=== PATIENT | female | born 1960 | race Caucasian/White ===

== ENCOUNTER → 2017-11-18 | Outpatient (CLI) | payer OTHER ==
[~2017-11-18] MED LIST: IOHEXOL 180 MG/ML 10 ML VIAL.; LIDOCAINE 1% PF 2 ML VIAL.; methylPREDNISolone ACETATE 40 MG/ML VIAL.; methylPREDNISolone ACETATE 80 MG/ML VIAL.
== END ==
LOC: PNCL 07:57
DX: M51.16 Intervertebral disc disorders with radiculopathy, lumbar region (principal); M96.1 Postlaminectomy syndrome, not elsewhere classified; I10 Essential (primary) hypertension; M19.90 Unspecified osteoarthritis, unspecified site; F32.9 Major depressive disorder, single episode, unspecified; F17.200 Nicotine dependence, unspecified, uncomplicated; Z90.49 Acquired absence of other specified parts of digestive tract; Z98.51 Tubal ligation status; Z98.890 Other specified postprocedural states; Z96.653 Presence of artificial knee joint, bilateral
CPT/HCPCS: 62323; J1030; J1040; Q9965

== ENCOUNTER → 2017-12-02 | Outpatient (CLI) | payer OTHER ==
[2017-12-02] MEDS: GADOBUTROL 10 MMOL/10 ML VIAL IV (10:48)
== END | disposition home or self-care (01) ==
LOC: KCIC MRI 09:25
DX: M51.36 Other intervertebral disc degeneration, lumbar region (principal); M48.07 Spinal stenosis, lumbosacral region
CPT/HCPCS: 72158; A9585

== ENCOUNTER → 2017-12-02 | Outpatient (CLI) | payer OTHER | END | disposition home or self-care (01) | LOC: PNCL 08:01 | DX: M51.16 Intervertebral disc disorders with radiculopathy, lumbar region (principal); M96.1 Postlaminectomy syndrome, not elsewhere classified; Z88.5 Allergy status to narcotic agent; Z88.8 Allergy status to other drugs, medicaments and biological substances; I10 Essential (primary) hypertension; Z90.49 Acquired absence of other specified parts of digestive tract; Z98.51 Tubal ligation status; M19.90 Unspecified osteoarthritis, unspecified site; Z96.653 Presence of artificial knee joint, bilateral; F32.9 Major depressive disorder, single episode, unspecified; F17.200 Nicotine dependence, unspecified, uncomplicated | CPT/HCPCS: 62323; J1030; J1040; Q9965 ==

== ENCOUNTER → 2017-12-17 | Outpatient (CLI) | payer OTHER | END | disposition home or self-care (01) | LOC: PNCL 08:04 | DX: M51.16 Intervertebral disc disorders with radiculopathy, lumbar region (principal); I10 Essential (primary) hypertension; Z87.891 Personal history of nicotine dependence | CPT/HCPCS: 99212 ==

== ENCOUNTER 2018-03-14 14:41 | Emergency (ER) | payer OTHER ==
[~2018-03-14] VITALS: Ht 182.9 cm; Wt 113.4 kg
[~2018-03-14 14:41] MED LIST changes: +AMLO1CAP5 PO; +CYAN500T17 PO; +CYCL10TA2 PO; +DOCU-109 PO; +ESCITALOPRAM OX10 MG PO; +ESTR1TAB5 PO; +GABA600T91 PO; +HYDR-2762 PO; -IOHEXOL 180 MG/ML 10 ML VIAL.; -LIDOCAINE 1% PF 2 ML VIAL.; +NAPR250T6 PO; +NAPR500T8 PO; +OXYC-328 PO; +TRIA1TAB PO; -methylPREDNISolone ACETATE 40 MG/ML VIAL.; -methylPREDNISolone ACETATE 80 MG/ML VIAL.
--- NOTE | 2018-03-14 15:04 | RAD ---
EXAM: PORTABLE CHEST 1V AP View of the chest DATE: 03/14/2018 2:55 PM INDICATION: Syncope COMPARISON: No Prior FINDINGS: The heart is not enlarged. Mediastinal and hilar contours are normal. No focal parenchymal airspace opacity. No pleural effusion or pneumothorax. IMPRESSION: 1. No radiographic evidence for acute cardiopulmonary process. Electronically signed by: Tre Hoffman MD (03/14/2018 3:01 PM) [facility]
[2018-03-14 15:15] LABS: BASO % 1 % (0-3); EOS # 0.1 x10^3/uL (0.0-0.7); EOS % 1 % (0-3); HEMATOCRIT 37.8 % (36.0-47.0); HEMOGLOBIN 13.5 g/dL (12.0-15.5); LYMPH # 1.6 x10^3/uL (1.0-4.8); LYMPH % 20 % (24-48); MEAN CORPUSCULAR HEMOGLOBIN 32 pg (25-35); MEAN CORPUSCULAR HGB CONC 36 g/dL (31-37); MEAN CORPUSCULAR VOLUME 90 fL (79-100); MONO # 0.7 x10^3/uL (0.0-1.1); MONO % 9 % (0-9); NEUT # 5.5 x10^3uL (1.8-7.7); NEUT % 70 % (31-73); PLATELET COUNT 286 x10^3/uL (140-400); RED BLOOD COUNT 4.21 x10^6/uL (3.50-5.40); RED CELL DISTRIBUTION WIDTH 14.1 % (11.5-14.5); WHITE BLOOD COUNT 7.9 x10^3/uL (4.0-11.0)
[2018-03-14 15:25] LABS: BILIRUBIN,URINE NEGATIVE (NEG); CLARITY,URINE CLEAR; COLOR,URINE YELLOW; NITRITE,URINE NEGATIVE (NEG); PROTEIN,URINE NEGATIVE (NEG-TRACE); UROBILINOGEN,URINE 0.2 mg/dL (0.2 mg/dL)
[2018-03-14 15:31] LABS: CALCIUM 9.6 mg/dL (8.5-10.1); GFR 56.9; POTASSIUM 3.6 mmol/L (3.5-5.1)
[2018-03-14 15:35] LABS: BACTERIA,URINE 0 /HPF (0-FEW); HYALINE CASTS, URINE FEW /HPF; RBC,URINE OCC /HPF (0-2); SQUAMOUS EPITHELIAL CELL,UR OCC /LPF; WBC,URINE RARE /HPF (0-4)
[2018-03-14 15:37] LABS: ALBUMIN/GLOBULIN RATIO 1.3 (1.0-1.7); TOTAL BILIRUBIN 0.3 mg/dL (0.2-1.0); TOTAL PROTEIN 7.2 g/dL (6.4-8.2)
--- NOTE | 2018-03-14 15:47 | PHYS DOC ---
Past Medical History Past Medical History: Hypertension Additional Past Medical Histor: CHRONIC BACK PAIN Past Surgical History: Other Additional Past Surgical Histo: NECK AND BACK Alcohol Use: None Drug Use: None Adult General Chief Complaint Chief Complaint: SYNCOPE HPI HPI Patient is a 58 year old F who presents after episode of acute back pain. Patient reports she has chronic back pain. She states she had an acute, sudden onset of lower back pain that caused her to be nauseated. She then had a syncopal episode. She is back to baseline upon arrival and denies any pain or nausea. She did take a lortab 5 prior to this episode. Review of Systems Review of Systems Constitutional: Denies fever or chills [] Respiratory: Denies cough or shortness of breath [] Cardiovascular: No chest pain or palpitations GI: Denies abdominal pain. Reports nausea without vomiting. Musculoskeletal: Low back pain Integument: Denies rash or skin lesions [] Neurologic: Denies headache, focal weakness or sensory changes [] All other systems were reviewed and found to be within normal limits, except as documented in this note. Allergies Allergies Allergies Coded Allergies Type Severity Reaction Last Updated Verified diazepam Allergy Severe "PASSED OUT" WAS "FLOPPING ALL OVER THE BED" 04/10/15 Yes nickel Allergy Intermediate Rash, REDNESS, INFLAMED 04/10/15 Yes morphine Adverse Reaction Severe Nausea and Vomiting, RAPID HEARTBEAT, DIZZINESS 04/10/15 Yes oxycodone Adverse Reaction Severe AGITATION 04/10/15 Yes Physical Exam Physical Exam Constitutional: Well developed, well nourished, no acute distress, non-toxic appearance. [] HENT: Normocephalic, atraumatic Eyes: PERRLA, EOMI, conjunctiva normal, no discharge. [] Neck: Normal range of motion, no tenderness, supple, no stridor. [] Cardiovascular:Heart rate regular rhythm, no murmur [] Lungs & Thorax: Bilateral breath sounds clear to auscultation [] Abdomen: Bowel sounds normal, soft, no tenderness Skin: Warm, dry, no erythema, no rash. [] Back: No tenderness, no CVA tenderness. [] Extremities: No tenderness, ROM intact, no edema. [] Neurologic: Alert and oriented X 3, normal motor function, normal sensory function, no focal deficits noted. [] Psychologic: Affect normal, judgement normal, mood normal. [] Current Patient Data Vital Signs Vital Signs Date Time Temp Pulse Resp B/P (MAP) Pulse Ox O2 Delivery O2 Flow Rate FiO2 03/14/18 14:41 98.2 87 14 131/84 (100) 99 Room Air 98.2 Lab Values Laboratory Tests Test 03/14/18 15:04 03/14/18 15:07 White Blood Count 7.9 x10^3/uL (4.0-11.0) Red Blood Count 4.21 x10^6/uL (3.50-5.40) Hemoglobin 13.5 g/dL (12.0-15.5) Hematocrit 37.8 % (36.0-47.0) Mean Corpuscular Volume 90 fL (79-100) Mean Corpuscular Hemoglobin 32 pg (25-35) Mean Corpuscular Hemoglobin Concent 36 g/dL (31-37) Red Cell Distribution Width 14.1 % (11.5-14.5) Platelet Count 286 x10^3/uL (140-400) Neutrophils (%) (Auto) 70 % (31-73) Lymphocytes (%) (Auto) 20 % (24-48) L Monocytes (%) (Auto) 9 % (0-9) Eosinophils (%) (Auto) 1 % (0-3) Basophils (%) (Auto) 1 % (0-3) Neutrophils # (Auto) 5.5 x10^3uL (1.8-7.7) Lymphocytes # (Auto) 1.6 x10^3/uL (1.0-4.8) Monocytes # (Auto) 0.7 x10^3/uL (0.0-1.1) Eosinophils # (Auto) 0.1 x10^3/uL (0.0-0.7) Basophils # (Auto) 0.0 x10^3/uL (0.0-0.2) Sodium Level 141 mmol/L (136-145) Potassium Level 3.6 mmol/L (3.5-5.1) Chloride Level 103 mmol/L (98-107) Carbon Dioxide Level 25 mmol/L (21-32) Anion Gap 13 (6-14) Blood Urea Nitrogen 20 mg/dL (7-20) Creatinine 1.0 mg/dL (0.6-1.0) Estimated GFR (Cockcroft-Gault) 56.9 BUN/Creatinine Ratio 20 (6-20) Glucose Level 112 mg/dL (70-99) H Calcium Level 9.6 mg/dL (8.5-10.1) Total Bilirubin 0.3 mg/dL (0.2-1.0) Aspartate Amino Transferase (AST) 18 U/L (15-37) Alanine Aminotransferase (ALT) 28 U/L (14-59) Alkaline Phosphatase 99 U/L (46-116) Total Protein 7.2 g/dL (6.4-8.2) Albumin 4.0 g/dL (3.4-5.0) Albumin/Globulin Ratio 1.3 (1.0-1.7) Urine Collection Type U cath Urine Color Yellow Urine Clarity Clear Urine pH 7.0 Urine Specific [place] 1.015 Urine Protein Negative mg/dL (NEG-TRACE) Urine Glucose (UA) Negative mg/dL (NEG) Urine Ketones (Stick) Negative mg/dL (NEG) Urine Blood Negative (NEG) Urine Nitrite Negative (NEG) Urine Bilirubin Negative (NEG) Urine Urobilinogen Dipstick 0.2 mg/dL (0.2 mg/dL) Urine Leukocyte Esterase Negative (NEG) Urine RBC Occ /HPF (0-2) Urine WBC Rare /HPF (0-4) Urine Squamous Epithelial Cells Occ /LPF Urine Bacteria 0 /HPF (0-FEW) Urine Hyaline Casts Few /HPF Urine Mucus Mod /LPF Laboratory Tests 03/14/18 15:04 Laboratory Tests 03/14/18 15:04 EKG EKG NSR, rate 81, Left axis[] Radiology/Procedures Radiology/Procedures PATIENT: TANJA GUTIERREZ LACCOUNT: [id number]#: [id number] : 1960 LOCATION: ER AGE: 58 SEX: F EXAM STATUS: PRE ER ORD. PHYSICIAN: ZANA MOISE APRN REASON: syncope PROCEDURE: PORTABLE CHEST 1V EXAM: PORTABLE CHEST 1V AP View of the chest DATE: 03/14/2018 2:55 PM INDICATION: Syncope COMPARISON: No Prior FINDINGS: The heart is not enlarged. Mediastinal and hilar contours are normal. No focal parenchymal airspace opacity. No pleural effusion or pneumothorax. IMPRESSION: 1. No radiographic evidence for acute cardiopulmonary process. Electronically signed by: Tre Santana MD (03/14/2018 3:01 PM) [facility] DICTATED and SIGNED BY: TRE SANTANA MD DATE: 03/14/18 1500 [] Course & Med Decision Making Course & Med Decision Making Pertinent Labs and Imaging studies reviewed. (See chart for details) I suspect patient had vasovagal syncope r/t sudden pain and nausea. However, offered admission for further evaluation. Patient declines at this time. She is wondering if it is from not eating prior to taking her lortab, also a reasonable explanation. Plan: home to rest, f/u with PCP, return precautions reviewed Dragon Disclaimer Dragon Disclaimer This electronic medical record was generated, in whole or in part, using a voice recognition dictation system. Departure Departure Impression: Primary Impression: Syncope Disposition: HOME, SELF-CARE Condition: IMPROVED Referrals: MARISSA AGUILERA (PCP) Patient Instructions: Syncope Problem Qualifiers Primary Impression: Syncope Syncope type: unspecified Qualified Codes: R55 - Syncope and collapse ZANA MOISE [employer] MARKETING ASSISTANT Mar 14, 2018 15:47
[2018-03-14 16:14] VITALS: BP 127/86
--- NOTE | 2018-03-15 21:13 | EKG ---
[facility] [address] [place] [address] Test Date: 2018-03-14 Test Time: 14:49:01 Pat Name: TANJA GUTIERREZ Department: Room: Gender: F Pre Press Manager: CATALINA : 1960 Requested By: ZANA MOISE Order Number: [id number] Reading MD: Chance Barber Measurements Intervals [place] Rate: 81 P: 26 MN: 160 QRS: -16 QRSD: 90 T: 27 QT: 386 QTc: 449 Interpretive Statements SINUS RHYTHM LEFTWARD AXIS CONSIDER LEFT VENTRICULAR HYPERTROPHY POSSIBLY ABNORMAL ECG Electronically Signed On 03-17-2018 10:56:11 CDT by Chance Barber
== END 2018-03-14 16:46 | disposition home or self-care (01) ==
LOC: ER 14:41
DX: R55 Syncope and collapse (principal); M54.5 Low back pain; G89.29 Other chronic pain; I10 Essential (primary) hypertension; Z98.890 Other specified postprocedural states; Z88.5 Allergy status to narcotic agent; Z88.8 Allergy status to other drugs, medicaments and biological substances
CPT/HCPCS: 36415; 71045; 80053; 81001; 85025; 93005; 99285-25

== ENCOUNTER → 2018-03-26 | Outpatient (CLI) | payer OTHER ==
[2018-03-14 16:14] VITALS: BP 127/86
[~2018-03-26] MED LIST changes: +IOHEXOL 180 MG/ML 10 ML VIAL. ONE; +LIDOCAINE 2% PF 2ML VIAL. ONE; +methylPREDNISolone ACETATE 40 MG/ML VIAL. ONE; +methylPREDNISolone ACETATE 80 MG/ML VIAL. ONE
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
== END ==
LOC: PNCL 09:02
PROVIDERS: ATTEND Anesthesiology
DX: M51.16 Intervertebral disc disorders with radiculopathy, lumbar region (principal); M96.1 Postlaminectomy syndrome, not elsewhere classified
CPT/HCPCS: 62323; J1030; J1040; J2001; Q9965

== ENCOUNTER → 2018-03-30 | Outpatient (CLI) | payer OTHER ==
[2018-03-14 16:14] VITALS: BP 127/86
[~2018-03-30] MED LIST changes: -IOHEXOL 180 MG/ML 10 ML VIAL. ONE; -LIDOCAINE 2% PF 2ML VIAL. ONE; -methylPREDNISolone ACETATE 40 MG/ML VIAL. ONE; -methylPREDNISolone ACETATE 80 MG/ML VIAL. ONE
--- NOTE | 2018-03-30 17:43 | KCIC ---
MRI of the cervical spine without contrast 03/30/2018 CLINICAL HISTORY: Bilateral cervical radiculopathy. History of previous anterior fusion. TECHNIQUE: Unenhanced T1-weighted, T2-weighted and inversion recovery sagittal and gradient echo, T2-weighted axial images of the cervical spine were obtained. FINDINGS: Comparison study is dated 09/13/2013. This was performed at [facility] in [place], [place]. Minimal lateral curvature of the cervical spine is seen convex to the left. There is straightening of the normal cervical lordosis. The patient is post anterior fusion using an anterior plate, bone screws and bone graft material at C5-6 and C6-7. Degenerative signal changes are seen involving the remaining discs of the cervical spine. Degenerative signal changes are seen within the marrow surrounding these discs. No area of abnormal signal intensity is seen involving the cervical spinal cord. At the C2-3, C3-4 and C4-5 disc spaces there are minimal to mild generalized disc bulges. Degenerative changes are seen involving the uncovertebral and facet joints bilaterally. These findings do not result in significant central spinal canal or neural foraminal stenosis. At the C5-6 level degenerative changes are seen involving the uncovertebral and facet joints bilaterally. These findings do not result in significant central spinal canal or neural foraminal stenosis. At the C6-7 level left paracentral posterior vertebral body osteophyte formation is seen which measures 3 mm in AP diameter. Degenerative changes are seen involving the uncovertebral and facet joints, left greater than right. These findings do not result in significant central spinal canal stenosis. Mild left neural foraminal stenosis is seen. At the C7-T1 disc space there is a mild generalized disc bulge. Degenerative changes are seen involving the facet joints bilaterally. These findings do not result in significant central spinal canal or neural foraminal stenosis. IMPRESSION: 1. Post anterior fusion at C5-6 and C6-7. 2. Degenerative changes are seen throughout the cervical spine. These findings do not result in significant central spinal canal stenosis at any level. Mild left neural foraminal stenosis is seen at C6-7. Electronically signed by: Tam Ambriz MD (03/30/2018 5:40 PM) [facility]
== END | disposition home or self-care (01) ==
LOC: KCIC MRI 15:31
PROVIDERS: ATTEND Anesthesiology
DX: M48.02 Spinal stenosis, cervical region (principal); M54.12 Radiculopathy, cervical region; Z98.1 Arthrodesis status; Z88.5 Allergy status to narcotic agent; Z88.8 Allergy status to other drugs, medicaments and biological substances
CPT/HCPCS: 72141

== ENCOUNTER → 2018-08-31 | Outpatient (CLI) | payer OTHER ==
[~2018-08-31] MED LIST changes: -HYDR-2762 PO; +HYDR-2765 PO; +IOHEXOL 180 MG/ML 10 ML VIAL. ONE; -OXYC-328 PO; +OXYC1TAB22 PO; +methylPREDNISolone ACETATE 40 MG/ML VIAL. ONE; +methylPREDNISolone ACETATE 80 MG/ML VIAL. ONE
--- NOTE | 2018-09-01 05:41 | PAIN ---
DATE OF SERVICE: 08/31/2018 DIAGNOSES: Lumbar radiculopathy with lumbar degenerative disk disease and post lumbar laminectomy syndrome. HISTORY OF PRESENT ILLNESS: The patient is a 58-year-old female who returns for followup status post lumbar epidural steroid injections, most recently 03/26/2018. The patient did very well with this with near 100% improvement for the first 2 months after the injection and the pain began to return gradually in the low back, bilateral lower extremities. The patient reports mostly in the lateral thighs and anterior thighs, but across the low back is her main complaint. The patient reports her pain is a 9 on a scale of 10 at its worst, 7 on average, 5 at its least and is a 7 today. The patient reports sharp, tight, shooting, stabbing, radiating into both legs, alternating right and left being worse, but in both legs. The patient reports no new motor or sensory deficits, no new bowel or bladder incontinence. She did very well after last injection, was increasing her working activities, able to do household activities, walking great distances, sleeping better at night as well. The patient reports it is better with sitting or lying down, much worse with standing, walking or bending repetitively which she has been doing at work lately. PHYSICAL EXAMINATION: VITAL SIGNS: The patient's blood pressure 123/82, pulse 85, respirations 16, temperature 98.0 degrees Fahrenheit, height 6 feet, weighs 250 pounds. GENERAL: The patient is awake, alert, oriented, appropriate, very pleasant demeanor. HEENT: Head shows normocephalic, atraumatic. Extraocular movements are intact and symmetrical. Oral cavity: Mucous membranes are moist and pink. Dentition is intact. NECK: Shows anterior throat supple without palpable lymphadenopathy noted. Swallow reflex symmetrical. CHEST: Shows normal with inspection. Breath sounds clear to auscultation bilaterally. HEART: Shows S1, S2 clear. No murmurs auscultated. ABDOMEN: Soft, nontender, nondistended. No palpable organomegaly is noted. No rebound or guarding demonstrated. BACK: Shows spine grossly in the midline. Normal appearing thoracic kyphosis and lumbar lordotic curvature. Lumbar paraspinous muscle shows symmetrical on inspection. On palpation, shows some moderate tenderness but only diffusely bilaterally. The patient has well-healed surgical scar as noted previously. The patient has good rotational motion of lumbar spine, both laterally as well as extension and flexion without significant difficulty. The patient shows no tenderness over the sacrum or sacroiliac regions or the spinous processes with palpation. EXTREMITIES: Lower extremities show deep tendon reflexes 2+ in the patellar, 1+ tendo-calcaneus tendons. Motor exam is strong with 5/5 dorsiflexion, extension, quadriceps and hamstring flexion equal. Peripheral pulses are 1+ posterior tibia. No peripheral edema is noted in the lower extremities bilaterally. Options were discussed with the patient. The patient's old chart was reviewed as her current medication regimen updated. Current review of systems updated today as well. We will proceed with a lumbar epidural steroid injection today with fluoroscopic guidance. Risks were again discussed including, but not limited to bleeding, infection, possibility of epidural hematoma and subsequent neurological compromise, dural puncture, headaches, spinal cord and/or nerve damage, side effects of steroid medication and poor results regarding pain control. The patient understands and wished to proceed. The patient to return to clinic in approximately 2 weeks for followup, was counseled on return appointment, activity level and side effects to be aware of. DIAGNOSIS: Lumbar radiculopathy with lumbar degenerative disk disease and post lumbar laminectomy syndrome. PROCEDURE: Lumbar epidural steroid injection, translaminar approach at L4-L5 level using C-arm fluoroscopic guidance under sterile prep and drape using local anesthetic. MEDICATION INJECTED: A total of 120 mg Depo-Medrol plus 10 mL of preservative-free normal saline and 2 mL of Isovue for contrast. CONDITION AT DISCHARGE: Stable. The patient tolerated procedure well, had no complications. FLAQUITO BRADLEY MD DR: NACHO/parth JOB#: [id number] / [id number]
== END | disposition home or self-care (01) ==
LOC: PNCL 12:54
PROVIDERS: ATTEND Anesthesiology
DX: M51.16 Intervertebral disc disorders with radiculopathy, lumbar region (principal); M96.1 Postlaminectomy syndrome, not elsewhere classified; Z88.5 Allergy status to narcotic agent; Z88.8 Allergy status to other drugs, medicaments and biological substances
CPT/HCPCS: 62323; J1030; J1040; Q9965

== ENCOUNTER → 2018-09-14 | Outpatient (CLI) | payer OTHER ==
--- NOTE | 2018-09-14 19:04 | PAIN ---
DATE OF SERVICE: 09/14/2018 PROGRESS NOTE FOR PAIN CLINIC DIAGNOSIS: Lumbar radiculopathy with lumbar degenerative disk disease and post-lumbar laminectomy syndrome. HISTORY OF PRESENT ILLNESS: The patient is a 58-year-old female who returns for followup status post lumbar epidural steroid injection x 1. The patient reports about 100% improvement in the pain in the right leg and about 50% improvement in pain in the left leg, but across the low back, it is about 75% improved. The patient reports pain still in the low back, left posterior gluteus, posterior thigh, lateral thigh, anterior thigh, and medial thigh. The patient describes the pain as sharp, shooting, stabbing, becoming more constant with standing, on and off in intensity and spasms in the low back as well. The patient reports her pain is a 10 on a scale of 10 at its worst, 7 on average, 5 at its least and is a 7 today. The patient reports no new motor or sensory deficits. She was increasing distance walking and doing work activity with much greater ease and comfort, household activities as well and sleeping better during the night. It is beginning to awaken her from sleep, however, about once at night at this point. The patient reports no new bowel or bladder incontinence or other complaints. PHYSICAL EXAMINATION: VITAL SIGNS: The patient's blood pressure is 138/88, pulse 91, respirations 16, temperature 98.0 degrees Fahrenheit, height is 6 feet, weight is 246 pounds. GENERAL: The patient is awake, alert, oriented, appropriate, has very pleasant demeanor. HEENT: Head shows normocephalic, atraumatic. Extraocular movements are intact and symmetrical. Oral cavity: Mucous membranes are moist and pink. Dentition is intact. NECK: Shows anterior throat supple without palpable lymphadenopathy noted. Swallow reflex is symmetrical. CHEST: Shows normal on inspection. Breath sounds are clear to auscultation bilaterally. HEART: Shows S1, S2 clear. No murmurs auscultated. ABDOMEN: Soft, nontender, nondistended. No palpable organomegaly is noted. No rebound or guarding demonstrated. BACK: Shows spine grossly in the midline. Normal appearing thoracic kyphosis and lumbar lordotic curvature is slightly flattened. Well-healed surgical scar is noted in the lumbar distribution. Lumbar paraspinous muscle shows symmetrical on inspection, but some mild tenderness with palpation in the low lumbar distribution only, but without radiation. The patient has good rotational motion of lumbar spine, both laterally as well as extension and flexion without difficulty. EXTREMITIES: Lower extremities show deep tendon reflexes 2+ in the patellar and 1+ tendo-calcaneus tendons, are equal. Motor exam is strong with 5/5 dorsiflexion, extension and symmetrical. Peripheral pulses are 1+ posterior tibia. No peripheral edema is noted. Options were discussed with the patient. The patient's old chart was reviewed as her current medication regimen updated. Current review of systems updated today as well. We will proceed with a second in this series of lumbar epidural steroid injection today with fluoroscopic guidance. Risks were again discussed including, but not limited to bleeding, infection, possibility of epidural hematoma, subsequent neurologic compromise, dural puncture, headaches, spinal cord and/or nerve damage, side effects of steroid medication and poor results regarding pain control. The patient understands and wished to proceed. The patient will return to the clinic in approximately 2 weeks for followup, was counseled on return appointment, activity level and side effects to be aware of. DIAGNOSIS: Lumbar radiculopathy with lumbar degenerative disk disease and post-lumbar laminectomy syndrome. PROCEDURE: Lumbar epidural steroid injection, translaminar approach at L4-L5 level using C-arm fluoroscopic guidance under sterile prep and drape using local anesthetic. MEDICATION INJECTED: A total of 120 mg Depo-Medrol plus 10 mL of preservative-free normal saline and 2 mL of Isovue for contrast. CONDITION AT DISCHARGE: Stable. The patient tolerated the procedure well, had no complications. FLAQUITO BRADLEY MD DR: NACHO/parth JOB#: [id number] / [id number]
== END | disposition home or self-care (01) ==
LOC: PNCL 12:53
PROVIDERS: ATTEND Anesthesiology
DX: M51.16 Intervertebral disc disorders with radiculopathy, lumbar region (principal); M96.1 Postlaminectomy syndrome, not elsewhere classified; Z88.5 Allergy status to narcotic agent; Z88.8 Allergy status to other drugs, medicaments and biological substances
CPT/HCPCS: 62323; J1030; J1040; Q9965

== ENCOUNTER → 2019-09-28 | Outpatient (CLI) | payer OTHER ==
--- NOTE | 2019-09-28 09:49 | PAIN ---
DATE OF SERVICE: 09/28/2019 PROGRESS NOTE FOR PAIN CLINIC DIAGNOSES: 1. Lumbar radiculopathy with lumbar degenerative disk disease and lumbar post-laminectomy syndrome. 2. Cervical radiculopathy with cervical degenerative disk disease and cervical post-laminectomy syndrome. HISTORY OF PRESENT ILLNESS: The patient is a 59-year-old female who returns for followup, last seen about a year ago on 09/14/2018. The patient had lumbar epidural steroid injections x 2. She did very well with near 100% improvement until the last 2-3 months. The patient reports the pain has been returning in the low back and bilateral lower extremities, worse on the left than it was on the right, but still traveling into the bilateral posterior thighs and into the tops of both feet, more on the left than the right, but present bilaterally. The patient reports it is worse with walking, standing, changing positions, especially at work where she is standing for long periods of time. The patient rates her pain as 8 on a scale of 10, it was worst over the past week, 5 on average, 3 at its least and is a 5 today. The patient also reports pain in the base of the neck and the left upper extremity, going into the thumb and the first finger on the left side as well as some in the triceps and mostly in the bicep and forearm both anteriorly and posteriorly on the left side as well. The patient reports no new motor or sensory deficits. Reports the pain awakens her from sleep, but only about once every 6 hours, from the back. The patient reports no other changes. PHYSICAL EXAMINATION: VITAL SIGNS: The patient's blood pressure is 110/89, pulse 82, respirations 18, temperature 98.4 degrees Fahrenheit, height is 6 feet, and weight is 260 pounds. GENERAL: The patient is awake, alert, oriented, appropriate, very pleasant demeanor. HEENT: Shows normocephalic, atraumatic. Extraocular movements are intact and symmetrical. Oral cavity: Mucous membranes moist and pink. Dentition is intact. NECK: Shows anterior throat supple without palpable lymphadenopathy noted. Swallow reflex symmetrical. CHEST: Shows normal on inspection. Breath sounds are clear bilaterally. HEART: Shows S1, S2 clear. No murmurs auscultated. ABDOMEN: Soft, obese, nontender, nondistended. BACK: Shows spine grossly in the midline, normal-appearing cervical lordotic curvature, thoracic kyphotic curvature and some minor flattening of lumbar lordotic curvature with well-healed surgical scarring noted. Cervical paraspinous muscle shows symmetrical on inspection, with palpation shows some moderate tenderness diffusely bilaterally, but only diffusely without significant radiation. The patient shows good rotational motion of cervical spine, both laterally as well as extension and flexion without significant difficulty. Low back shows some moderate tenderness throughout the upper, middle, and lower distributions of paraspinous muscles, but are symmetrical in appearance. No specific trigger points with palpation and no radiation. Good rotational motion of lumbar spine, both laterally as well as extension and flexion without significant difficulty. No tenderness over the sacrum or sacroiliac regions. EXTREMITIES: Lower extremities show deep tendon reflexes at 2+ in the patellar, 1+ tendo-calcaneus tendons. Upper extremities show 2+ biceps and triceps tendons. 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 Lower extremities show dorsiflexion and extension at 5/5 as well as quadriceps and hamstring flexion and are symmetrical. Peripheral pulses are 2+ radial, 1+ posterior tibial. No peripheral edema is noted in the upper or lower extremities bilaterally. Options were discussed with the patient. The patient's old chart was reviewed as well as her current medication regimen updated. Current review of systems updated today as well. We will proceed with a lumbar epidural steroid injection today, the first in this series. Risks were discussed including but not limited to bleeding, infection, possibility of epidural hematoma, subsequent neurological compromise, dural puncture, headaches, spinal cord and/or nerve damage, side effects of steroid medication and poor results regarding pain control. The patient understands and wished to proceed. The patient will return to clinic in approximately 2 weeks for followup. She was counseled on return appointment, activity level and side effects to be aware of. The patient understands and agrees. The patient will see how this does as well. We will put in a preauthorization for cervical epidural steroid injection. She does have significant clinical radiculopathy at C6-7 dermatomal distribution into the left hand and arm. DIAGNOSIS: Lumbar radiculopathy with lumbar degenerative disk disease and lumbar post-laminectomy syndrome. PROCEDURE: Lumbar epidural steroid injection, translaminar approach at L4-L5 level using C-arm fluoroscopic guidance under sterile prep and drape using local anesthetic. MEDICATIONS INJECTED: A total of 120 mg Depo-Medrol plus 10 mL of preservative-free normal saline and 2 mL of contrast. CONDITION AT DISCHARGE: Stable. The patient tolerated procedure well, had no complications. FLAQUITO BRADLEY MD DR: NACHO/parth JOB#: [id number] / [id number]
== END ==
LOC: PNCL 07:46
PROVIDERS: ATTEND Anesthesiology
DX: M51.16 Intervertebral disc disorders with radiculopathy, lumbar region (principal); M96.1 Postlaminectomy syndrome, not elsewhere classified; M50.10 Cervical disc disorder with radiculopathy, unspecified cervical region
CPT/HCPCS: 62323; J1030; J1040; Q9965

== ENCOUNTER → 2019-10-12 | Outpatient (CLI) | payer OTHER ==
--- NOTE | 2019-10-12 09:15 | PAIN ---
DATE OF SERVICE: 10/12/2019 PROGRESS NOTE FOR PAIN CLINIC DIAGNOSES: 1. Lumbar radiculopathy with lumbar degenerative disk disease and lumbar post-laminectomy syndrome. 2. Cervical radiculopathy with cervical degenerative disk disease and cervical post-laminectomy syndrome. HISTORY OF PRESENT ILLNESS: The patient is a 59-year-old female who returns for followup status post lumbar epidural steroid injection x 1. The patient reports near 100% improvement initially, now about 50% improvement. The right leg is doing much better, but the left leg still has some significant pain radiating into the posterior gluteus, lateral thigh, anterior thigh, medial thigh and into the top of the foot on the left side, worse with walking, standing, changing positions. Right side is essentially pain free. The patient reports it is aching and dull in the left and across the low back, some burning pain in the foot, stabbing as well, on and off in intensity, worse with walking activity and standing, changing positions. The patient reports she is sleeping better at night; however, no new motor or sensory deficits. Generally getting around a little easier, again right side doing much better. The patient reports her pain on the left is a 9 on a scale of 10 at its worst over the past week, 7 on average, 5 at its least and is a 5 today. The patient reports no new motor or sensory deficits, no new bowel or bladder incontinence or other complaints. PHYSICAL EXAMINATION: VITAL SIGNS: The patient's blood pressure 152/95, pulse 84, respirations 18, temperature 97.7 degrees Fahrenheit, height is 6 feet, weight is 258 pounds. GENERAL: The patient is awake, alert, oriented, appropriate, very pleasant demeanor. HEENT: Head shows normocephalic, atraumatic. Extraocular movements are intact and symmetrical. Oral cavity: Mucous membranes are moist and pink. Dentition is intact. NECK: Shows anterior throat supple without palpable lymphadenopathy noted. Swallow reflex symmetrical. CHEST: Shows normal on inspection. Breath sounds are clear bilaterally. HEART: Shows S1, S2 clear. No murmurs auscultated. ABDOMEN: Soft, nontender, nondistended. No palpable organomegaly is noted. No rebound or guarding demonstrated. BACK: Shows spine grossly in the midline. Normal appearing thoracic kyphosis and minor flattening of lumbar lordotic curvature with well-healed surgical scar noted. Lumbar paraspinous muscle shows symmetrical on inspection, with palpation some moderate tenderness diffusely only in the lower lumbar distribution, slightly more on the left than the right, but present bilaterally without asymmetry, atrophy. No trigger points. The patient shows good rotational movement of lumbar spine laterally as well extension and flexion without significant pain recorded. The patient's lower extremity showed deep tendon reflexes 2+ in the patellar, 1+ tendo-calcaneus tendons. Motor exam is strong with 5/5 dorsiflexion, extension, quadriceps and hamstring flexion. Peripheral pulses are 1+ posterior tibia. No peripheral edema is noted bilaterally. PLAN: Options were discussed with the patient. The patient's old chart was reviewed as her current medication regimen updated. Current review of systems updated today as well. We will proceed with a second in a series of lumbar epidural steroid injection today with fluoroscopic guidance. Risks were again discussed including, but not limited to bleeding, infection, possibility of epidural hematoma, subsequent neurological compromise, dural puncture headaches, spinal cord and/or nerve damage, side effects of steroid medication and poor results regarding pain control. The patient understands and wished to proceed. The patient will return to clinic in approximately 2 weeks for followup. She was counseled on return appointment, activity level and side effects to be aware of. DIAGNOSES: Lumbar radiculopathy with lumbar degenerative disk disease and lumbar post-laminectomy syndrome. PROCEDURE: Lumbar epidural steroid injection, translaminar approach L4-L5 level using C-arm fluoroscopic guidance under sterile prep and drape using local anesthetic. MEDICATION INJECTED: A total of 120 mg Depo-Medrol plus 10 mL of preservative-free normal saline and 2 mL of contrast. CONDITION AT DISCHARGE: Stable. The patient tolerated the procedure well, had no complications. FLAQUITO BRADLEY MD DR: NACHO/parth JOB#: [id number] / [id number]
== END ==
LOC: PNCL 07:51
PROVIDERS: ATTEND Anesthesiology
DX: M51.16 Intervertebral disc disorders with radiculopathy, lumbar region (principal); M96.1 Postlaminectomy syndrome, not elsewhere classified; M50.10 Cervical disc disorder with radiculopathy, unspecified cervical region
CPT/HCPCS: 62323; J1030; J1040; Q9965

== ENCOUNTER → 2019-10-26 | Outpatient (CLI) | payer OTHER ==
--- NOTE | 2019-10-26 09:43 | PAIN ---
DATE OF SERVICE: 10/26/2019 PROGRESS NOTE FOR PAIN CLINIC DIAGNOSES: 1. Lumbar radiculopathy with lumbar degenerative disk disease and lumbar post-laminectomy syndrome. 2. Cervical radiculopathy with cervical degenerative disk disease and post-cervical laminectomy syndrome. HISTORY OF PRESENT ILLNESS: The patient is a 59-year-old female who returns for followup status post lumbar epidural steroid injection x 2. The patient reports she did very well with about 90% improvement for her back and lower extremity pain. Her chief complaint is neck and shoulder pain and headaches. The patient reports no new motor or sensory deficits, but significant pain in the base of neck and shoulders, bilateral upper extremities in a radicular fashion, more on the right than the left, but present bilaterally. The patient reports that 9 on a scale of 10 at its worst over the past week, 6 on average and 4 at its least and is a 6 today. The patient reports her back is doing much better, neck and shoulders are becoming much more noticeable and painful. The patient described as cramping and aching in the neck and shoulders with headaches as well as radiating, shooting pain in the upper extremities with activity. The patient reports no loss of motor function, sleeping better at night. The patient reports the pain does not awaken her from sleep at night. No new motor or sensory deficits, no new bowel or bladder incontinence. PHYSICAL EXAMINATION: VITAL SIGNS: The patient's blood pressure 155/101, pulse 99, respirations 16, temperature 98.0 degrees Fahrenheit, height is 6 feet, weight is 260 pounds. GENERAL: The patient is awake, alert, oriented, appropriate, very pleasant demeanor. HEENT: Shows normocephalic, atraumatic. Extraocular movements are intact and symmetrical. Oral cavity: Mucous membranes moist and pink. Dentition is intact. NECK: Shows anterior throat supple without palpable lymphadenopathy noted. Swallow reflex symmetrical. CHEST: Shows normal on inspection. Breath sounds are clear bilaterally. HEART: Shows S1, S2 clear. No murmurs auscultated. ABDOMEN: Soft, nontender, nondistended. BACK: Shows spine grossly in the midline. Cervical lordotic curvature is slightly flattened with cervical paraspinous muscle shows symmetrical on inspection, with palpation shows some moderate tenderness diffusely bilaterally, but only diffusely without significant radiation. The patient has good rotational motion of lumbar spine, both laterally as well as extension and flexion without significant difficulty. The patient's neck shows good rotational motion past 45 degrees, right and left lateral as well as full extension, full forward flexion without significant pain reported. EXTREMITIES: The patient's upper extremities show deep tendon reflexes 2+ in the biceps, triceps tendons. 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 Peripheral pulses are 2+ radial. No peripheral edema is noted bilaterally. Shoulder shrug is strong and intact without loss of strength on resistance as is abduction of shoulder to 90 degrees without loss of strength as well. Options were discussed with the patient. The patient's old chart was reviewed as her current medication regimen updated. Current review of systems updated today as well. We will proceed with a cervical epidural steroid injection today with fluoroscopic guidance. Risks were again discussed including, but not limited to bleeding, infection, possibility of epidural hematoma, subsequent neurological compromise, dural puncture, headaches, spinal cord and/or nerve damage, side effects of steroid medication and poor results regarding pain control. The patient understands and wished to proceed. The patient will return to clinic in approximately 2 weeks for followup. She was counseled on return appointment, activity level and side effects to be aware of. DIAGNOSES: Cervical radiculopathy with cervical degenerative disk disease and cervical post-laminectomy syndrome. PROCEDURE: Cervical epidural steroid injection, translaminar approach at the C6-C7 level using C-arm fluoroscopic guidance under sterile prep and drape using local anesthetic. MEDICATION INJECTED: A total of 120 mg Depo-Medrol plus 5 mL of preservative-free normal saline and 2 mL of contrast. CONDITION AT DISCHARGE: Stable. The patient tolerated procedure well, had no complications. FLAQUITO BRADLEY MD DR: NACHO/parth JOB#: [id number] / [id number]
== END ==
LOC: PNCL 08:46
PROVIDERS: ATTEND Anesthesiology
DX: M50.123 Cervical disc disorder at C6-C7 level with radiculopathy (principal); M51.16 Intervertebral disc disorders with radiculopathy, lumbar region; M96.1 Postlaminectomy syndrome, not elsewhere classified
CPT/HCPCS: 62321; J1030; J1040; Q9965

== ENCOUNTER 2020-04-04 20:51 | Emergency (ER) | payer OTHER ==
[~2020-04-04] VITALS: Ht 182.9 cm; Wt 122.0 kg
[~2020-04-04 20:51] MED LIST changes: -IOHEXOL 180 MG/ML 10 ML VIAL. ONE; -methylPREDNISolone ACETATE 40 MG/ML VIAL. ONE; -methylPREDNISolone ACETATE 80 MG/ML VIAL. ONE
--- NOTE | 2020-04-04 22:11 | PHYS DOC ---
Past Medical History Past Medical History: COPD, Hypertension Additional Past Medical Histor: DEGENERATIVE DISC DISEASE Past Surgical History: Cholecystectomy, , Knee Replacement, Other Additional Past Surgical Histo: R ROTATOR CUFF, DULCE MARIA KNEE RPLC, R CARPAL TUNNEL, NECK & BACK SX Smoking Status: Former Smoker Alcohol Use: None Drug Use: None General Adult EDM: Chief Complaint: ABDOMINAL PAIN HPI: HPI: Patient is a 60 year old female who presented to ER for evaluation of right abdominal pain off and on for 2 weeks. Patient also noted blood in her urine. Patient also had fever and chill, no cough. Patient was seen by her family chito herndon today, tested for COVID-19 but the result is pending at this time. Patient denies being exposed to anybody who tested positive for COVID-19. Review of Systems: Review of Systems: Constitutional: Positive for fever and chill Eyes: Denies change in visual acuity. [] HENT: Denies nasal congestion or sore throat. [] Respiratory: Denies cough or shortness of breath. [] Cardiovascular: Denies chest pain or edema. [] GI: Positive for right abdominal pain associate with some nausea : Denies dysuria. [] Musculoskeletal: Denies back pain or joint pain. [] Integument: Denies rash. [] Neurologic: Denies headache, focal weakness or sensory changes. [] Endocrine: Denies polyuria or polydipsia. [] Lymphatic: Denies swollen glands. [] Psychiatric: Denies depression or anxiety. [] Heart Score: Risk Factors: Risk Factors: DM, Current or recent (<one month) smoker, HTN, HLP, family history of CAD, obesity. Risk Scores: Score 0 - 3: 2.5% MACE over next 6 weeks - Discharge Home Score 4 - 6: 20.3% MACE over next 6 weeks - Admit for Clinical Observation Score 7 - 10: 72.7% MACE over next 6 weeks - Early Invasive Strategies Allergies: Allergies: Allergies Coded Allergies Type Severity Reaction Last Updated Verified diazepam Allergy Severe "PASSED OUT" WAS "FLOPPING ALL OVER THE BED" 04/10/15 Yes nickel Allergy Intermediate Rash, REDNESS, INFLAMED 04/10/15 Yes morphine Adverse Reaction Severe Nausea and Vomiting, RAPID HEARTBEAT, DIZZINESS 04/10/15 Yes oxycodone Adverse Reaction Severe AGITATION 10/19/15 Yes Physical Exam: PE: Constitutional: Well developed, well nourished, no acute distress, non-toxic appearance. [] HENT: Normocephalic, atraumatic, bilateral external ears normal, oropharynx moist, no oral exudates, nose normal. [] Eyes: PERRLA, EOMI, conjunctiva normal, no discharge. [] Neck: Normal range of motion, no tenderness, supple, no stridor. [] Cardiovascular:Heart rate regular rhythm, no murmur [] Lungs & Thorax: Bilateral breath sounds clear to auscultation [] Abdomen: Bowel sounds normal, soft, There is tenderness to palpation at RLQ AND SUPRAPUBIC AREA, no masses, no pulsatile masses. [] Skin: Warm, dry, no erythema, no rash. [] Back: No tenderness, no CVA tenderness. [] Extremities: No tenderness, no cyanosis, no clubbing, ROM intact, no edema. [] Neurologic: Alert and oriented X 3, normal motor function, normal sensory function, no focal deficits noted. [] Psychologic: Affect normal, judgement normal, mood normal. [] Current Patient Data: Labs: Laboratory Tests Test 04/04/20 21:58 04/04/20 22:05 White Blood Count 11.0 x10^3/uL Red Blood Count 4.19 x10^6/uL Hemoglobin 12.3 g/dL Hematocrit 36.0 % Mean Corpuscular Volume 86 fL Mean Corpuscular Hemoglobin 29 pg Mean Corpuscular Hemoglobin Concent 34 g/dL Red Cell Distribution Width 15.5 % Platelet Count 266 x10^3/uL Neutrophils (%) (Auto) 71 % Lymphocytes (%) (Auto) 16 % Monocytes (%) (Auto) 12 % Eosinophils (%) (Auto) 0 % Basophils (%) (Auto) 1 % Neutrophils # (Auto) 7.9 x10^3/uL Lymphocytes # (Auto) 1.8 x10^3/uL Monocytes # (Auto) 1.3 x10^3/uL Eosinophils # (Auto) 0.0 x10^3/uL Basophils # (Auto) 0.1 x10^3/uL Prothrombin Time 13.3 SEC Prothromb Time International Ratio 1.1 Activated Partial Thromboplast Time 28 SEC Sodium Level 136 mmol/L Potassium Level 2.9 mmol/L Chloride Level 98 mmol/L Carbon Dioxide Level 27 mmol/L Anion Gap 11 Blood Urea Nitrogen 32 mg/dL Creatinine 1.2 mg/dL Estimated GFR (Cockcroft-Gault) 45.8 BUN/Creatinine Ratio 27 Glucose Level 164 mg/dL Calcium Level 9.2 mg/dL Magnesium Level 2.0 mg/dL Total Bilirubin 0.7 mg/dL Aspartate Amino Transf (AST/SGOT) 14 U/L Alanine Aminotransferase (ALT/SGPT) 29 U/L Alkaline Phosphatase 118 U/L Total Protein 7.5 g/dL Albumin 3.6 g/dL Albumin/Globulin Ratio 0.9 Lipase 234 U/L Urine Collection Type Unknown Urine Color Yellow Urine Clarity Cloudy Urine pH 5.5 Urine Specific [place] 1.025 Urine Protein Negative mg/dL Urine Glucose (UA) Negative mg/dL Urine Ketones (Stick) Negative mg/dL Urine Blood Large Urine Nitrite Negative Urine Bilirubin Negative Urine Urobilinogen Dipstick 0.2 mg/dL Urine Leukocyte Esterase Large Urine RBC 6-10 /HPF Urine WBC 20-40 /HPF Urine Squamous Epithelial Cells Mod /LPF Urine Bacteria Moderate /HPF Urine Mucus Mod /LPF Current Medications Medications (Trade) Dose Ordered Sig/Fabiola Route PRN Reason Start Time Stop Time Status Last Admin Dose Admin Piperacillin Sod/ Tazobactam Sod 3.375 gm/Sodium Chloride 50 ml @ 100 mls/hr 1X ONCE IV 04/04/20 23:00 04/04/20 23:29 Vital Signs: Vital Signs Date Time Temp Pulse Resp B/P (MAP) Pulse Ox O2 Delivery O2 Flow Rate FiO2 04/04/20 21:26 97.8 98 20 151/70 (97) 95 Room Air 97.8 EKG: EKG: [] Radiology/Procedures: Radiology/Procedures: [][facility] [address] [place], [place] [id number] IMAGING REPORT Signed PATIENT: TANJA GUTIERREZ LACCOUNT: [id number] : 1960 LOCATION: ER AGE: 60 SEX: F EXAM STATUS: REG ER ORD. PHYSICIAN: MARYANN MORGAN DO REASON: right side abdominal pain for two weeks, HEMATURIA PROCEDURE: CT ABDOMEN PELVIS WO CONTRAST EXAM: CT ABDOMEN/PELVIS WITHOUT CONTRAST. HISTORY: Right abdominal pain. Hematuria. TECHNIQUE: Computed tomography of the abdomen and pelvis was performed without intravenous contrast. One or more of the following individualized dose reduction techniques were utilized for this examination: 1. Automated exposure control. 2. Adjustment of the mA and/or kV according to patient size. 3. Use of iterative reconstruction technique. COMPARISON: None. FINDINGS: Lung windows through the visualized portions of the bases reveal mild atelectasis. Bone windows reveal no suspicious lesions. The appendix is not inflamed. There is no small bowel obstruction. Changes of bilateral fallopian tube closure are noted. The gallbladder is surgically absent. The liver, pancreas, adrenal glands, and spleen are unremarkable. There are no pathologically enlarged lymph nodes. Small umbilical and right inguinal hernias contain only fat. There are no suspicious renal lesions without contrast. There are no renal or ureteral calculi. There is no hydronephrosis. No clear bladder or urothelial lesions are appreciable by this technique. IMPRESSION: 1. No cause for pain is identified. Ongoing follow-up for hematuria is recommended. 2. Small umbilical and right inguinal hernias contain only fat. Electronically signed by: Ann Malone MD (04/05/2020 12:47 AM) [place] DICTATED and SIGNED BY: FAHEEM MALONE MD DATE: 04/05/20 0047 Course & Med Decision Making: Course & Med Decision Making Pertinent Labs and Imaging studies reviewed. (See chart for details) Patient is a 60-year-old female who was evaluated in ER due to right abdominal pain with hematuria. Patient was found to have UTI, potassium level was low, it was replaced in the ER. Patient was found to have inguinal hernia and umbilical hernia containing fat. Patient will need to follow-up with general surgeon for outpatient evaluation and treatment. Patient is amenable to plan of care. Dragon Disclaimer: Dragon Disclaimer: This electronic medical record was generated, in whole or in part, using a voice recognition dictation system. Departure Departure Impression: Primary Impression: UTI (urinary tract infection) Additional Impressions: Right inguinal hernia Hypokalemia Disposition: 01 DC HOME SELF CARE/HOMELESS Condition: IMPROVED Referrals: MARISSA AGUILERA (PCP) PLEASE FOLLOW UP WITH YOUR DOCTOR THIS WEEK TO HAVE YOUR POTASSIUM LEVEL RE CHECKED. Patient Instructions: Hypokalemia, Inguinal Hernia, Adult, Urinary Tract Infection Additional Instructions: Thank you for visiting our Emergency Department. We appreciate you trusting us with your care. If any additional problems come up don't hesitate to return to visit us. Please follow up with your primary care provider so they can plan additional care if needed and know about the problem that you had. If symptoms worsen come back to the Emergency Department. Any concerning symptoms that start such as chest pain, shortness of air, weakness or numbness on one side of the body, running high fevers or any other concerning symptoms return to the ER. Scripts Levofloxacin (LEVOFLOXACIN) 500 Mg Tablet 1 TAB PO DAILY, #7 TAB Prov: MARYANN MORGAN DO 04/05/20 MARYANN MORGAN DO Apr 04, 2020 22:11
[2020-04-04 22:15] LABS: BASO # 0.1 x10^3/uL (0.0-0.2); BASO % 1 % (0-3); EOS % 0 % (0-3); HEMOGLOBIN 12.3 g/dL (12.0-15.5); LYMPH # 1.8 x10^3/uL (1.0-4.8); LYMPH % 16 % (24-48); MEAN CORPUSCULAR HEMOGLOBIN 29 pg (25-35); MEAN CORPUSCULAR HGB CONC 34 g/dL (31-37); MEAN CORPUSCULAR VOLUME 86 fL (79-100); MONO # 1.3 x10^3/uL (0.0-1.1); MONO % 12 % (0-9); NEUT # 7.9 x10^3/uL (1.8-7.7); NEUT % 71 % (31-73); PLATELET COUNT 266 x10^3/uL (140-400); RED BLOOD COUNT 4.19 x10^6/uL (3.50-5.40); RED CELL DISTRIBUTION WIDTH 15.5 % (11.5-14.5)
[2020-04-04 22:17] LABS: BILIRUBIN,URINE NEGATIVE (NEG); CLARITY,URINE CLOUDY; COLOR,URINE YELLOW; NITRITE,URINE NEGATIVE (NEG); PH,URINE 5.5 (<5.0-8.0); PROTEIN,URINE NEGATIVE (NEG-TRACE); UROBILINOGEN,URINE 0.2 mg/dL (0.2 mg/dL)
[2020-04-04 22:21] LABS: BACTERIA,URINE MODERATE /HPF (0-FEW); WBC,URINE 20-40 /HPF (0-4)
[2020-04-04 22:29] LABS: PROTHROMBIN TIME PATIENT 13.3 SEC (11.7-14.0)
[2020-04-04 22:30] LABS: ALBUMIN 3.6 g/dL (3.4-5.0); ALBUMIN/GLOBULIN RATIO 0.9 (1.0-1.7); CALCIUM 9.2 mg/dL (8.5-10.1); CREATININE 1.2 mg/dL (0.6-1.0); GFR 45.8; TOTAL BILIRUBIN 0.7 mg/dL (0.2-1.0); TOTAL PROTEIN 7.5 g/dL (6.4-8.2)
[2020-04-04 22:35] LABS: POTASSIUM 2.9 mmol/L (3.5-5.1)
[2020-04-04] MEDS ORDERED: PIPERACILLIN/TAZOBACTAM 3.375 GM in IV NORMAL SALINE 50ML 50 ML IV ONE (23:00)
--- NOTE | 2020-04-05 00:50 | RAD ---
EXAM: CT ABDOMEN/PELVIS WITHOUT CONTRAST. HISTORY: Right abdominal pain. Hematuria. TECHNIQUE: Computed tomography of the abdomen and pelvis was performed without intravenous contrast. One or more of the following individualized dose reduction techniques were utilized for this examination: 1. Automated exposure control. 2. Adjustment of the mA and/or kV according to patient size. 3. Use of iterative reconstruction technique. COMPARISON: None. FINDINGS: Lung windows through the visualized portions of the bases reveal mild atelectasis. Bone windows reveal no suspicious lesions. The appendix is not inflamed. There is no small bowel obstruction. Changes of bilateral fallopian tube closure are noted. The gallbladder is surgically absent. The liver, pancreas, adrenal glands, and spleen are unremarkable. There are no pathologically enlarged lymph nodes. Small umbilical and right inguinal hernias contain only fat. There are no suspicious renal lesions without contrast. There are no renal or ureteral calculi. There is no hydronephrosis. No clear bladder or urothelial lesions are appreciable by this technique. IMPRESSION: 1. No cause for pain is identified. Ongoing follow-up for hematuria is recommended. 2. Small umbilical and right inguinal hernias contain only fat. Electronically signed by: Ann Malone MD (04/05/2020 12:47 AM) [facility]
[2020-04-05] MEDS ORDERED: POTASSIUM CHLORIDE 20 MEQ TABLET.ER. PO ONE ×2 (01:30→03:00)
[2020-04-05] MEDS ORDERED: LEVO500T8 PO (01:30)
[2020-04-05 02:00] VITALS: BP 160/69
== END 2020-04-05 02:05 | disposition home or self-care (01) ==
LOC: ER 20:51
DX: N39.0 Urinary tract infection, site not specified (principal); K40.90 Unilateral inguinal hernia, without obstruction or gangrene, not specified as recurrent; E87.6 Hypokalemia; I10 Essential (primary) hypertension; J44.9 Chronic obstructive pulmonary disease, unspecified; Z87.891 Personal history of nicotine dependence; Z90.49 Acquired absence of other specified parts of digestive tract; Z88.5 Allergy status to narcotic agent; Z88.8 Allergy status to other drugs, medicaments and biological substances
CPT/HCPCS: 36415; 74176; 80053; 81001; 83690; 83735; 85025; 85610; 85730; 87086; 96365; 96366; 99284; J2543

== ENCOUNTER 2020-04-20 06:16 | Day surgery (SDC) | payer OTHER ==
[~2020-04-20] VITALS: Ht 182.9 cm; Wt 126.0 kg
[~2020-04-20 06:16] MED LIST changes: +BUPIVACAINE-EPI 0.25%-1:200000 MPF 30 ML VIAL. INJ ONE; +LEVO500T8 PO; +NAPR220C4 PO; +ceFAZolin SODIUM 3 GM in IV DEXTROSE 5% 100ML 100 ML IV PRN
[2020-04-20] MEDS ORDERED: ACETAMINOPHEN 500 MG TABLET PO ONE (06:30)
[2020-04-20] MEDS ORDERED: DEXAMETHASONE SOD PHOS 4 MG/ML VIAL ONE (06:43)
[2020-04-20] MEDS ORDERED: ONDANSETRON PF 4 MG/2 ML VIAL. ONE (06:43)
[2020-04-20] MEDS ORDERED: PROPOFOL 10 MG/ML (20ML) VIAL. IV ONE ×2 (06:43→08:51)
[2020-04-20] MEDS ORDERED: LIDOCAINE 2% PF 5 ML VIAL. ONE (06:43)
[2020-04-20] MEDS ORDERED: ROCURONIUM 50 MG/5 ML VIAL. ONE (06:44)
[2020-04-20] MEDS ORDERED: ONDANSETRON PF 4 MG/2 ML VIAL. IV PRN (07:00)
[2020-04-20] MEDS ORDERED: HYDROmorphone 2 MG/ML VIAL IV PRN (07:00)
[2020-04-20] MEDS ORDERED: IV RINGERS,LACTATED 1000ML 1,000 ML IV SCH (07:00)
[2020-04-20] MEDS ORDERED: fentaNYL PF VIAL 100 MCG/2 ML VIAL IV PRN (07:00)
[2020-04-20] MEDS ORDERED: LIDOCAINE 1% PF 2 ML VIAL. ID PRN (07:00)
[2020-04-20 07:09] LABS: CALCIUM 8.9 mg/dL (8.5-10.1); CREATININE 0.9 mg/dL (0.6-1.0); GFR 63.9; POTASSIUM 3.9 mmol/L (3.5-5.1)
[2020-04-20] MEDS ORDERED: MINERAL OIL for SURGERY 10 ML VIAL. MC ONE (07:33)
[2020-04-20] MEDS ORDERED: SEVOFLURANE 61 TO 120 MINUTES. IH ONE (07:39)
[2020-04-20] MEDS ORDERED: ePHEDrine PF IN SALINE 50 MG/10 ML SYRINGE. IV ONE (08:15)
[2020-04-20] MEDS ORDERED: KETOROLAC 30 MG/ML VIAL. ONE (08:15)
[2020-04-20] MEDS ORDERED: NEOSTIGMINE METHYLSULFATE 5 MG/5 ML SYRINGE. ONE (08:19)
[2020-04-20] MEDS ORDERED: GLYCOPYRROLATE 1 MG/5 ML VIAL. ONE (08:20)
--- NOTE | 2020-04-20 08:37 | PDOC4 ---
Operative Note Operative Note Date: 1028 at 834 Preoperative diagnosis: Right inguinal hernia Postoperative diagnosis: Same Procedure: Robotic assisted laparoscopic right inguinal hernia repair with mesh Surgeon: Trace Specimen: None Dictation: Patient is a 60-year-old female with some abdominal pain had a CT scan showing a small right inguinal hernia with incarcerated fat. Procedure of robotic assisted laparoscopic right inguinal hernia repair with mesh was explain ed to the patient detail risk benefits were also discussed including bleeding infection injury to intra-abdominal contents possibly necessitating further or open operations alternatives to this procedure also discussed with the patient who seemed to understand and gave both verbal and written consent to have the procedure performed. Patient was taken to the operating room placed in the supine position general anesthesia was initiated once patient was sleeping intubated was placed in the low lithotomy positioning and her abdomen was prepped and draped in usual sterile fashion using ChloraPrep. An area in the left upper quadrant was injected quarter percent Marcaine with epinephrine incision was made 11 blade scalpel and a 5 mm Visiport was placed under direct visualization into the abdomen creating pneumoperitoneum a 5 mm scope was placed and the abdomen was inspected she had previously had a midline incision but there were no adhesions no umbilical hernia noted small right inguinal hernia was noted. 8 mm da Dago port was placed at the umbilicus a millimeter da Dago port was placed in the right midabdomen and one in the left midabdomen. The da Dago robot was brought and docked all port sites surgeon went to the robotic console using a grasper and Endo Debora scissors the peritoneum on the right inguinal area was incised a flap was propagated inferiorly reducing all hernia contents. A medium Bard 3D max mesh for right side was placed over the hernia defect and the peritoneum was closed over the mesh with a 2 OV lock absorbable suture. All instruments removed the da Dago robot was undocked from all the ports all ports removed pneumoperitoneum was reduced all port sites were closed with 4 subcuticular Monocryl Mastisol Steri-Strips and island dressings were applied. Patient was awakened and extubated in the operating room taken to recovery in stable condition all sponge instrument needle counts listed as correct estimated blood loss 5 mL MIRELA CASAS MD Apr 20, 2020 08:37
--- NOTE | 2020-04-20 08:40 | DISCH ---
DISCHARGE INSTRUCTIONS Condition on Discharge Condition on Discharge: Stable Activity After Discharge Activity Instructions for Disc: Avoid exertion Other activity instructions: No lifting more than 20 pounds for 2 weeks Diet after Discharge Diet after Discharge: Regular Additional Diet Restrictions: resume home diet Diet Texture: Regular Wound Incision Care Wound/Incision Care: Ice to area for comfort Other wound/incision instructi: May shower in 24 hours Contacting the DRWendi after DC Call your doctor for: If your condition worsens Follow-Up Follow up with: Dr. Casas in 2 weeks Treatment/Equipment after DC Adaptive Equipment Issued: None MIRELA CASAS MD Apr 20, 2020 08:40
[2020-04-20] MEDS ORDERED: HYDR-3164 PO (08:57)
[2020-04-20] MEDS ORDERED: HYDROcodone/APAP 5/325MG 1 TAB TABLET PO ONE ×2 (09:00)
[2020-04-20] MEDS ORDERED: PROCHLORPERAZINE 10 MG/2 ML VIAL. ONE (09:01)
[2020-04-20] MEDS ORDERED: fentaNYL PF VIAL 100 MCG/2 ML VIAL ONE (09:01)
[2020-04-20] MEDS: fentaNYL PF VIAL 100 MCG/2 ML VIAL IV PRN ×2 (09:03→09:21)
[2020-04-20] MEDS: PROCHLORPERAZINE 10 MG/2 ML VIAL. IV PRN ×2 (09:04→09:21)
[2020-04-20 10:06] VITALS: BP 107/67
== END 2020-04-20 10:30 | disposition home or self-care (01) ==
LOC: SURG 06:16
PROVIDERS: ATTEND Surgery
DX: K40.90 Unilateral inguinal hernia, without obstruction or gangrene, not specified as recurrent (principal); I10 Essential (primary) hypertension; J44.9 Chronic obstructive pulmonary disease, unspecified; Z88.8 Allergy status to other drugs, medicaments and biological substances; Z87.891 Personal history of nicotine dependence; Z79.899 Other long term (current) drug therapy; Z20.828 Contact with and (suspected) exposure to other viral communicable diseases
CPT/HCPCS: 36415; 49650; 80048; 87426; A7015; C1781; C9803; J0780; J1100; J1885; J2405; J2704; J2710; J3010; J3490; S2900; U0003

== ENCOUNTER → 2020-08-29 | Outpatient (CLI) | payer OTHER ==
[~2020-08-29] MED LIST changes: -BUPIVACAINE-EPI 0.25%-1:200000 MPF 30 ML VIAL. INJ ONE; +HYDR-3164 PO; +IOHEXOL 180 MG/ML 10 ML VIAL. ONE; +NAPR-699 PO; -NAPR250T6 PO; -ceFAZolin SODIUM 3 GM in IV DEXTROSE 5% 100ML 100 ML IV PRN; +methylPREDNISolone ACETATE 40 MG/ML VIAL. ONE; +methylPREDNISolone ACETATE 80 MG/ML VIAL. ONE
--- NOTE | 2020-08-29 09:35 | PDOC ---
Progress Note - Pain Clinic Date of Service: DOS: DATE: 08/29/20 TIME: 09:31 Diagnosis: Dx: Lumbar radiculopathy with lumbar degenerative disease and lumbar postlaminectomy syndrome Cervical radiculopathy with cervical degenerative disease and cervical postlaminectomy syndrome History or Present Illness: HPI: 60-year-old female returns for follow-up status post cervical epidural steroid injection as well as lumbar epidural steroid injection last seen October 26, 2019 with cervical epidural steroid injection patient prescribed 80% improvement until a few months ago the pain began to return about 1 month ago in the low back and the bilateral lower extremities as well as the neck and shoulders and upper extremities her main complaint today is the low back and bilateral lower extremity pain rating the posterior gluteus posterior thighs posterior calves bilaterally right slightly greater than left present bilaterally. This is worse with walking standing positions stooping bending walking especially exacerbates the pain. Reports the pain in the low back and bilateral lower extremities sharp in the back dull in the legs tight in the back and shooting the legs with tingling and stabbing pain radiating can be unbearable at times patient rates her pain as a 9 on scale 10 at all times worst least and average is a 9 today. Patient reports it is increasing to the worse at night is disturbing her sleep about once every 6 hours she can use reposition it back to sleep. Initially she was doing much better with distance walking doing household activities work activities with greater ease and comfort now the pain returning significantly. Patient reports no new motor or sensory deficits no bowel or bladder incontinence. Physical Exam: VS: Blood pressure is 153/86 pulse 85 respirations 18 temperature 90.6 F height is 6 foot weight is 269 pounds PE: PHYSICAL EXAMINATION: GENERAL: The patient is awake, alert, oriented, appropriate, very pleasant demeanor HEENT: Shows normocephalic, atraumatic. Extraocular movements are intact and symmetrical. Oral cavity: Mucous membranes moist and pink. Dentition is intact. NECK: Shows anterior throat supple without palpable lymphadenopathy noted. Swallow reflex symmetrical. CHEST: Shows normal on inspection. Breath sounds are clear bilaterally, no rales or rhonchi. HEART: Shows S1, S2 clear. No murmurs auscultated. ABDOMEN: Soft, nontender, nondistended, obese. No palpable organomegaly is noted. Well-healed surgical scar at the umbilicus is noted BACK: Shows spine grossly in the midline. Normal-appearing cervical lordotic curvature. Cervical paraspinous muscles show symmetrical on inspection on palpation some moderate tenderness diffusely in the inferior aspect the cervical paraspinous musculature into the superior medial trapezius bilaterally. No trigger points are noted no radiation. Patient shows good rotation motion cervical spine both laterally as well as full extension and full forward flexion without significant limitation. There is slightly increased thoracic kyphosis, some minor flattening of the lumbar lordotic curvature. Lumbar paraspinous muscles show symmetrical on inspection, on palpation shows some moderate tenderness diffusely throughout the upper, middle and lower distribution of the paraspinous muscles without specific trigger points, without radiation of pain. The patient has good rotational motion of the lumbar spine, both laterally as well as extension and flexion without significant difficulty. No tenderness over the spinous processes, sacrum or sacroiliac regions. EXTREMITIES: Lower extremities show deep tendon reflexes 2+ in the patellar and tendo calcaneus tendons. Motor exam is 5 on a scale of 5 with right dorsiflexion, extension, quadriceps and hamstring flexion and 5/5 on the left. Peripheral pulses are 1+ posterior tibial. No peripheral edema is noted bilaterally. Lower extremities are warm and dry to touch, equal in color and appearance. Upper extremities show deep tendon reflexes 2+ in the bicep and triceps tendons, motor exam strong with finishing range supervisor strength rated 5 out of 5 as is bicep and tricep flexion bilaterally. Peripheral pulses are 2+ radial no peripheral edema. SKIN: Shows warm and dry, good turgor. No edema. No sores, rashes or bruising throughout. Procedure: Procedure: Options were discussed with the patient. Patient's old chart was reviewed as her current medication regimen updated, current review of systems updated today as well. We will proceed with a lumbar epidural steroid injection today with fluoroscopic guidance. Risks were discussed including but not limited to: Bleeding, infection, possibility of epidural hematoma and subsequent neurological compromise, dural puncture, headaches, spinal cord and/or nerve damage, side effects of steroid medication, and poor results regarding pain control. Patient understands and wished to proceed. Patient will return to clinic in approximate 2 weeks for follow-up, was counseled as to return appointment activity level and side effects to be aware of. Medication Injected: Med Injected: Procedure is lumbar epidural steroid injection under local anesthetic using sterile prep and drape at the L5-S1 level using C-arm fluoroscopic guidance in both AP and lateral views medications injected is 120 mg Depo-Medrol + 10 mL preservative-free normal saline and 2 mL contrast- condition at discharge is stable patient tolerated procedure well had no complications. Condition at Discharge: Condition at Discharge: Condition at discharge is stable, patient already the procedure well and had no complications. FLAQUITO BRADLEY MD Aug 29, 2020 09:35
--- NOTE | 2020-08-29 09:36 | PDOC4 ---
PROCEDURE Procedure Patient was consented for lumbar epidural steroid injection. Risks were dis cussed including but not limited to: Bleeding, infection, possibility of epidural hematoma and subsequent neurological compromise, dural puncture, headaches, spinal cord and/or nerve damage, side effects of steroid medication, and poor results regarding pain control. Patient understands and wished to proceed. Procedure is lumbar epidural steroid injection under local anesthetic using sterile prep and drape at the L5-S1 level using C-arm fluoroscopic guidance in both AP and lateral views medications injected is 120 mg Depo-Medrol + 10 mL preservative-free normal saline and 2 mL contrast- condition at discharge is stable patient tolerated procedure well had no complications. FLAQUITO BRADLEY MD Aug 29, 2020 09:35
== END | disposition home or self-care (01) ==
LOC: PNCL 08:58
PROVIDERS: ATTEND Anesthesiology
DX: M51.16 Intervertebral disc disorders with radiculopathy, lumbar region (principal); M96.1 Postlaminectomy syndrome, not elsewhere classified; M50.10 Cervical disc disorder with radiculopathy, unspecified cervical region; I10 Essential (primary) hypertension; J44.9 Chronic obstructive pulmonary disease, unspecified; M19.90 Unspecified osteoarthritis, unspecified site; F32.9 Major depressive disorder, single episode, unspecified; Z87.440 Personal history of urinary (tract) infections; Z90.49 Acquired absence of other specified parts of digestive tract; Z98.51 Tubal ligation status; Z98.890 Other specified postprocedural states; Z87.891 Personal history of nicotine dependence; Z88.8 Allergy status to other drugs, medicaments and biological substances
CPT/HCPCS: 62323; J1030; J1040; Q9965; 77002

== ENCOUNTER → 2020-09-19 | Outpatient (CLI) | payer OTHER ==
[~2020-09-19] MED LIST changes: -IOHEXOL 180 MG/ML 10 ML VIAL. ONE; -methylPREDNISolone ACETATE 40 MG/ML VIAL. ONE; -methylPREDNISolone ACETATE 80 MG/ML VIAL. ONE
--- NOTE | 2020-09-19 10:53 | KCIC ---
MRI of the lumbar spine without contrast 09/19/2020 CLINICAL HISTORY: Low back pain which radiates down both legs since June. History of previous lumb ar spine surgery. TECHNIQUE: Unenhanced T1-weighted and T2-weighted sagittal and axial and inversion recovery sagittal images of the lumbar spine were obtained. FINDINGS: Comparison study is dated 12/02/2017. Very mild S-shaped curvature of the thoracolumbar spine is seen. Degenerative signal changes are seen involving the L2-3, L3-4, L4-5 and L5-S1 discs. Degenerative signal changes are seen within the juli ow surrounding these discs. Loss of height of the L2-3 disc is noted. The conus medullaris is normal morphology, position, and signal characteristics. At the L1-2 disc space there is a mild generalized disc bulge. This is eccentric to the left. Degener ative changes are seen involving the facet joints bilaterally. There is moderate ligamentum flavum hy pertrophy bilaterally. These findings when combined result in mild central spinal canal stenosis, lef t greater than right. No neural foraminal stenosis is seen. At the L2-3 disc space, the patient is post left hemilaminectomy. There is a mild to moderate general ized disc bulge. Degenerative changes are seen involving the facet joints bilaterally. There is moder ate right ligamentum flavum hypertrophy. These findings do not result in significant central spinal c anal or neural foraminal stenosis. At the L3-4 disc space there is a mild to moderate generalized disc bulge. Degenerative changes are s een involving the facet joints bilaterally. There are small facet joint effusions bilaterally. There is mild to moderate ligamentum flavum hypertrophy bilaterally. These findings when combined result in mild central spinal canal stenosis. No neural foraminal stenosis is seen. At the L4-5 disc space there is a mild to moderate generalized disc bulge. Superimposed on this disc bulge is a right paracentral focal disc herniation. This measures 6 mm in AP diameter. Degenerative c hanges are seen involving the facet joints bilaterally. There is moderate ligamentum flavum hypertrop hy bilaterally. These findings when combined result in moderate to severe right greater than left adali tral spinal canal stenosis. The disc herniation appears to impinge upon the right L5 nerve root withi n the right lateral aspect of the central spinal canal. No neural foraminal stenosis is seen. At the L5-S1 disc space there is a mild to moderate generalized disc bulge. Degenerative changes are seen involving the facet joints bilaterally. There are small to moderate-sized facet joint effusions bilaterally. There is mild to moderate ligamentum flavum hypertrophy bilaterally. These findings when combined result in mild central spinal canal stenosis. Mild bilateral neural foraminal stenosis is s een. IMPRESSION: 1. Post left hemilaminectomy at L2-3. 2. The changes of degenerative disc disease are seen throughout the lumbar spine. These findings resu lt in mild left greater than right central spinal canal stenosis at L1-2, mild central spinal canal s tenosis at L3-4 and L5-S1 and moderate to severe right greater than left central spinal canal stenosi s at L4-5. Mild bilateral neural foraminal stenosis is seen at L5-S1. At the L4-5 disc space a right paracentral focal disc herniation is seen. This appears to impinge upon the right L5 nerve root withi n the right lateral aspect of the central spinal canal. Electronically signed by: Tam Ambriz MD (09/19/2020 10:50 AM) [id number]
== END ==
LOC: KCIC MRI 09:17
PROVIDERS: ATTEND Physician Assistant Medical
DX: M51.36 Other intervertebral disc degeneration, lumbar region (principal); M48.061 Spinal stenosis, lumbar region without neurogenic claudication
CPT/HCPCS: 72148

== ENCOUNTER → 2020-11-14 | Outpatient (CLI) | payer OTHER ==
[~2020-11-14] MED LIST changes: +BUDE10.2 IH; +DOCU-153 PO; +FURO20TA3 PO; +METH-562 PO
[2020-11-14 10:43] LABS: BASO # 0.1 x10^3/uL (0.0-0.2); BASO % 1 % (0-3); EOS # 0.2 x10^3/uL (0.0-0.7); EOS % 2 % (0-3); HEMOGLOBIN 13.1 g/dL (12.0-15.5); LYMPH # 1.7 x10^3/uL (1.0-4.8); LYMPH % 22 % (24-48); MEAN CORPUSCULAR HEMOGLOBIN 30 pg (25-35); MEAN CORPUSCULAR HGB CONC 34 g/dL (31-37); MEAN CORPUSCULAR VOLUME 88 fL (79-100); MONO # 0.8 x10^3/uL (0.0-1.1); MONO % 10 % (0-9); NEUT # 4.9 x10^3/uL (1.8-7.7); NEUT % 65 % (31-73); PLATELET COUNT 289 x10^3/uL (140-400); RED BLOOD COUNT 4.34 x10^6/uL (3.50-5.40); RED CELL DISTRIBUTION WIDTH 15.5 % (11.5-14.5); WHITE BLOOD COUNT 7.6 x10^3/uL (4.0-11.0)
--- NOTE | 2020-11-14 11:18 | EKG ---
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
[2020-11-14 11:21] LABS: ALBUMIN 4.3 g/dL (3.4-5.0); ALBUMIN/GLOBULIN RATIO 1.3 (1.0-1.7); CALCIUM 8.9 mg/dL (8.5-10.1); CREATININE 0.9 mg/dL (0.6-1.0); GFR 63.9; POTASSIUM 3.9 mmol/L (3.5-5.1); TOTAL BILIRUBIN 0.5 mg/dL (0.2-1.0); TOTAL PROTEIN 7.6 g/dL (6.4-8.2)
--- NOTE | 2020-11-14 15:26 | HP ---
ADMIT DATE: 11/15/2020 PREOPERATIVE HISTORY AND PHYSICAL HISTORY OF PRESENT ILLNESS: The patient is a pleasant 60-year-old who is having difficulty with low back pain and pain that radiates into both of her posterior lateral thighs to the knees. The problem started in 02/2020 with no inciting event. She says it has slowly worsened since then. She rates her pain 9/10. She says walking and activity can increase her pain. Sitting for too long also increases her pain. Lying down seems to help. She is taking Aleve. She did physical therapy, but it significantly increased her pain. She did 1 lumbar epidural steroid injection with no improvement about a month ago. She did have lumbar surgery in 2014 and did well with that. CURRENT MEDICATIONS: Aleve, amlodipine, furosemide. PAST MEDICAL HISTORY: Arthritis, hypertension, COPD. PAST SURGICAL HISTORY: Knee replacement; ACDF C5-C6, C6-C7 in 01/2014; lumbar microdecompression L2-L3 left in 03/2015; cholecystectomy; hernia repair; right rotator cuff repair. FAMILY HISTORY: Aneurysm, diabetes, hypertension, headaches. 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 Quit smoking more than 2 years ago. Previously smoked 1 pack per day for 15 years. Does not drink alcohol. ALLERGIES: LOCAL ANESTHETIC, VALIUM, MORPHINE, NICKEL AND OXYCONTIN. REVIEW OF SYSTEMS: A 12-point review of systems was performed and is noncontributory except that mentioned above. PHYSICAL EXAMINATION: GENERAL: Alert, pleasant in no acute distress. HEENT: Head normocephalic, atraumatic. SKIN: Warm and dry. Well-healed lumbar incision. MUSCULOSKELETAL: Lumbar paraspinal muscle bulk is normal, restricted range of motion of the lumbar spine, [id number] tenderness at the lower lumbar spine on palpation, normal range of motion of the lower extremities bilaterally. EXTREMITIES: No clubbing, cyanosis or edema. NEUROLOGIC: Alert and oriented x 3. Strength is 5/5 in the lower extremities. Sensory is intact to light touch in the lower extremities. Reflexes were present and symmetric in the lower extremities. Negative straight leg raising bilaterally. Normal gait. IMAGING: I reviewed her lumbar MRI scan. On that study, there was a right paracentral focal disk herniation, which appears to impinge upon the right L5 nerve root. There are degenerative changes with ligamentum flavum hypertrophy. There is [id number] central spinal canal stenosis. ASSESSMENT AND PLAN: I believe her symptoms are related to the problems at L4-L5. She has failed to improve with conservative measures. I recommended a microdiskectomy at L4-L5 bilaterally as well as a microdecompression. I spoke with her about the surgery including the rationale, technique and the risk involved and expected postoperative course. She understands all this and would like to proceed. ALFREDO/CHRISTIAN/HOLLY DR: María TID: [id number]
== END ==
LOC: SURGPAT 10:22
PROVIDERS: ATTEND Neurological Surgery
DX: Z01.818 Encounter for other preprocedural examination (principal); M51.16 Intervertebral disc disorders with radiculopathy, lumbar region; M48.062 Spinal stenosis, lumbar region with neurogenic claudication
CPT/HCPCS: 36415; 80053; 85025; 87641; 93005

== ENCOUNTER 2020-11-15 09:53 | Observation (INO) | payer OTHER ==
[2020-11-14 10:41] VITALS: BP 139/78
--- NOTE | 2020-11-14 15:33 | HP ---
ADMIT DATE: 11/15/2020 PREOPERATIVE HISTORY AND PHYSICAL HISTORY OF PRESENT ILLNESS: The patient is a pleasant 60-year-old who is having difficulty with low back pain and pain that radiates into both of her posterior lateral thighs to the knees. The problem started in 02/2020 with no inciting event. She says it has slowly worsened since then. She rates her pain 9/10. She says walking and activity can increase her pain. Sitting for too long also increases her pain. Lying down seems to help. She is taking Aleve. She did physical therapy, but it significantly increased her pain. She did 1 lumbar epidural steroid injection with no improvement about a month ago. She did have lumbar surgery in 2014 and did well with that. CURRENT MEDICATIONS: Aleve, amlodipine, furosemide. PAST MEDICAL HISTORY: Arthritis, hypertension, COPD. PAST SURGICAL HISTORY: Knee replacement; ACDF C5-C6, C6-C7 in 01/2014; lumbar microdecompression L2-L3 left in 03/2015; cholecystectomy; hernia repair; right rotator cuff repair. FAMILY HISTORY: Aneurysm, diabetes, hypertension, headaches. 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 Quit smoking more than 2 years ago. Previously smoked 1 pack per day for 15 years. Does not drink alcohol. ALLERGIES: LOCAL ANESTHETIC, VALIUM, MORPHINE, NICKEL AND OXYCONTIN. REVIEW OF SYSTEMS: A 12-point review of systems was performed and is noncontributory except that mentioned above. PHYSICAL EXAMINATION: GENERAL: Alert, pleasant in no acute distress. HEENT: Head normocephalic, atraumatic. SKIN: Warm and dry. Well-healed lumbar incision. MUSCULOSKELETAL: Lumbar paraspinal muscle bulk is normal, restricted range of motion of the lumbar spine, hpla-js-[id number] tenderness at the lower lumbar spine on palpation, normal range of motion of the lower extremities bilaterally. EXTREMITIES: No clubbing, cyanosis or edema. NEUROLOGIC: Alert and oriented x 3. Strength is 5/5 in the lower extremities. Sensory is intact to light touch in the lower extremities. Reflexes were present and symmetric in the lower extremities. Negative straight leg raising bilaterally. Normal gait. IMAGING: I reviewed her lumbar MRI scan. On that study, there was a right paracentral focal disk herniation, which appears to impinge upon the right L5 nerve root. There are degenerative changes with ligamentum flavum hypertrophy. There is [id number] central spinal canal stenosis. ASSESSMENT AND PLAN: I believe her symptoms are related to the problems at L4-L5. She has failed to improve with conservative measures. I recommended a microdiskectomy at L4-L5 bilaterally as well as a microdecompression. I spoke with her about the surgery including the rationale, technique and the risk involved and expected postoperative course. She understands all this and would like to proceed. ALFREDO/CHRISTIAN/HOLLY DR: María TID: [id number]
[~2020-11-15] VITALS: Ht 182.9 cm; Wt 125.0 kg
[~2020-11-15 09:53] MED LIST changes: -BUDE10.2 IH; +BUPIVACAINE-EPI 0.5%-1:200000 MPF 30 ML VIAL. ONE; -DOCU-153 PO; +GELATIN SPONGE SIZE 100. ONE; +HYDROmorphone 2 MG/ML VIAL IVP PRN; +IV RINGERS,LACTATED 1000ML 1,000 ML IV SCH; +KETOROLAC 60 MG/2 ML VIAL. ONE; -METH-562 PO; +MORPHINE SULFATE 2 MG/ML VIAL. IVP PRN; +PROCHLORPERAZINE 10 MG/2 ML VIAL. IVP PRN; +THROMBIN TOPICAL 20,000 UNIT SPRAY.SYRN KIT TP ONE; +fentaNYL PF VIAL 100 MCG/2 ML VIAL IVP PRN
[2020-11-15] MEDS ORDERED: BUDE10.2 IH (10:14)
[2020-11-15 10:17] VITALS: BP 145/72
[2020-11-15] MEDS ORDERED: PROPOFOL 50 ML IV ONE ×3 (10:34→15:10)
[2020-11-15] MEDS ORDERED: PROPOFOL 10 MG/ML (20ML) VIAL. IV ONE ×2 (10:34→13:50)
[2020-11-15] MEDS ORDERED: LIDOCAINE 2% PF 5 ML VIAL. ONE (10:34)
[2020-11-15] MEDS ORDERED: fentaNYL PF VIAL 100 MCG/2 ML VIAL ONE ×2 (10:35→12:22)
[2020-11-15] MEDS ORDERED: ROCURONIUM 50 MG/5 ML VIAL. ONE (10:35)
[2020-11-15] MEDS ORDERED: REMIFENTANIL 1 MG VIAL. IV ONE ×3 (10:35→15:09)
[2020-11-15] MEDS ORDERED: VANCOMYCIN 1GM IVPB FOR OMNI 250 ML IV PRN (11:00)
[2020-11-15] MEDS ORDERED: PHENYLEPHRINE 10 MG/ML VIAL. ONE (13:25)
[2020-11-15] MEDS ORDERED: ceFAZolin SODIUM IV Push 1 GM VIAL. IVP ONE ×2 (13:35→14:00)
[2020-11-15] MEDS ORDERED: ONDANSETRON PF 4 MG/2 ML VIAL. ONE (13:45)
[2020-11-15] MEDS ORDERED: DEXAMETHASONE SOD PHOS 4 MG/ML VIAL ONE (13:45)
[2020-11-15] MEDS ORDERED: GLYCOPYRROLATE 1 MG/5 ML VIAL. ONE (14:09)
[2020-11-15] MEDS ORDERED: NEOSTIGMINE METHYLSULFATE 5 MG/5 ML SYRINGE. ONE (14:09)
[2020-11-15] MEDS ORDERED: SEVOFLURANE > 120 MINUTES. IH ONE (16:23)
[2020-11-15] MEDS ORDERED: NALOXONE 0.4 MG/ML VIAL. IV PRN (16:45)
[2020-11-15] MEDS ORDERED: MAGNESIUM HYDROXIDE 2,400 MG/30 ML ORAL.SUSP. PO PRN (16:45)
[2020-11-15] MEDS ORDERED: ACETAMINOPHEN 325 MG TABLET. PO PRN (16:45)
[2020-11-15] MEDS ORDERED: diphenhydrAMINE HCL 25 MG CAPSULE PO PRN (16:45)
[2020-11-15] MEDS: POTASSIUM CL 20MEQ D5-0.45NACL 1,000 ML IV SCH (16:45)
[2020-11-15] MEDS ORDERED: ONDANSETRON PF 4 MG/2 ML VIAL. IVP PRN (16:45)
[2020-11-15] MEDS ORDERED: MAG HYDROX/ALUMINUM HYD/SIMETH 30 ML ORAL.SUSP PO PRN (16:45)
[2020-11-15] MEDS ORDERED: METHOCARBAMOL 750 MG TABLET PO PRN (16:45)
[2020-11-15] MEDS ORDERED: 0.9 % SODIUM CHLORIDE 10 ML DISP.SYRIN. IV PRN (16:45)
[2020-11-15] MEDS ORDERED: CALCIUM CARBONATE 500 MG TAB.CHEW PO PRN (16:45)
[2020-11-15] MEDS ORDERED: HYDROcodone/APAP 7.5/325MG 1 TAB TABLET PO PRN (17:00)
[2020-11-15 17:55] VITALS: BP 122/70
--- NOTE | 2020-11-15 18:02 | OP ---
DATE OF SURGERY: 11/15/2020 PREOPERATIVE DIAGNOSES: Lumbar spinal stenosis L4-L5 with disc bulge/herniation of right L4-L5. POSTOPERATIVE DIAGNOSES: Lumbar spinal stenosis L4-L5 with disc bulge/herniation of right L4-L5. OPERATION PERFORMED: 1. Bilateral hemilaminotomies with decompression of dura and nerve root, L4-L5. 2. Lumbar microdiscectomy, right L4-L5. OPERATION DONE: With EMG monitoring, SSEP monitoring, fluoroscopy, microscopic dissection. SPECIMEN: Disc and decompression. SURGEON: Robinson Sandoval M.D. IT SECURITY ARCHITECT: MATTHEW Chun, assisted with the surgery. She assisted with the exposure, the bilateral micro hemilaminotomies as well as the discectomy. OPERATIVE INDICATIONS: The patient is a pleasant 60-year-old who developed intractable back and bilateral leg pain on occasion, the right side worse than left, and at times the left side is worse than the right, but overall the right side was the more symptomatic side. On imaging studies, she had significant stenosis at L4-L5, combined with a central and right-sided disc herniation. I recommended lumbar microsurgical decompression. I spoke with her about the surgery and the risks, she wished to go ahead. DESCRIPTION OF PROCEDURE: Following general endotracheal anesthesia, the patient was positioned prone on the Jacek table. Lumbar region was prepped and draped in a standard fashion. SABINA hose and AV impulse boots were applied for DVT prophylaxis. The microscope was draped, fluoroscopy was draped into the field. Monitoring was established. Ancef 3 grams as well as vancomycin 1 gram were given prior to surgery. Using fluoroscopic guidance, incision was made over the L4-L5 interspace. I dissected down through skin and subcutaneous tissue, reflected the paraspinal muscles towards the right side. I used the long Alejandro retractors and brought in the microscope and the remainder of the surgery was done with a microscope using microscopic technique. I burred down a generous hemilaminotomy. Based on the patient's anatomy, it was very difficult to get far medially, but I was able to expose the dura and the exiting root well. I trimmed away very thickened ligamentum flavum and performed a partial foraminotomy. I gently retracted the dura medially. There were few large veins. I coagulated these and there was hard disc, which I entered and performed a discectomy and removed a number of firm subligamentous fragments to decompress that side. I then went to the contralateral side. In a similar fashion, drilled down a generous hemilaminotomy and trimmed away thickened ligamentum flavum, exposing the dura and the exiting root. There were a few large veins. I coagulated these. The disc was bulging slightly, but very firm and no discectomy was warranted. I had an excellent decompression on this side. I irrigated and then I assured myself of excellent hemostasis in muscles on either side, which I then closed with absorbable sutures along the subcutaneous tissue. The skin was closed with a 4- 0 subcuticular stitch. I felt the surgery went very well. JEREL DR: Nitin TID: [id number] JUAN LUIS
[2020-11-15 18:10] VITALS: BP 125/69
--- NOTE | 2020-11-15 18:29 | NUR ---
TRANSFERRED FROM RECOVERY. DROWSY BUT ANSWERS QUESTIONS. SHE IS RATING HER PAIN "MILD" --"2" WATER GIVEN PER REQUEST. RESTS IN BED.
[2020-11-15] MEDS: fentaNYL PF VIAL 100 MCG/2 ML VIAL IVP PRN (19:25)
[2020-11-15] MEDS: BUDESONIDE 0.5 MG/2 ML NEBU. NEB SCH (20:27)
[2020-11-15] MEDS: ALBUTEROL SULFATE 2.5 MG/3 ML NEBU. NEB SCH (20:27)
[2020-11-15] MEDS ORDERED: NON FORMULARY ITEM (Budesonide/Formoterol Fumarate (Symbicort 160-4.5 Mcg Inhaler) 2 PUFF) IH SCH (21:00)
[2020-11-15] MEDS: DOCUSATE SODIUM 100 MG CAPSULE. PO SCH (21:13)
[2020-11-15] MEDS: HYDROcodone/APAP 7.5/325MG 1 TAB TABLET PO PRN (21:14)
[2020-11-15 23:00] VITALS: BP 115/57
[2020-11-16] MEDS: fentaNYL PF VIAL 100 MCG/2 ML VIAL IVP PRN ×2 (01:36→07:17)
[2020-11-16 05:59] VITALS: BP 138/76
[2020-11-16] MEDS: POTASSIUM CL 20MEQ D5-0.45NACL 1,000 ML IV SCH (06:05)
[2020-11-16] MEDS: ALBUTEROL SULFATE 2.5 MG/3 ML NEBU. NEB SCH ×2 (07:29→12:33)
[2020-11-16] MEDS: BUDESONIDE 0.5 MG/2 ML NEBU. NEB SCH (07:29)
[2020-11-16] MEDS: HYDROcodone/APAP 7.5/325MG 1 TAB TABLET PO PRN ×2 (08:21→14:35)
[2020-11-16] MEDS: DOCUSATE SODIUM 100 MG CAPSULE. PO SCH (08:21)
[2020-11-16] MEDS ORDERED: LISINOPRIL 10 MG TABLET PO SCH (09:00)
[2020-11-16] MEDS ORDERED: amLODIPine BESYLATE 5 MG TABLET PO SCH (09:00)
[2020-11-16] MEDS ORDERED: FUROSEMIDE 20 MG TABLET PO SCH (09:00)
[2020-11-16] MEDS ORDERED: HYDR-2765 PO (09:42)
[2020-11-16] MEDS ORDERED: DOCU-153 PO (09:42)
[2020-11-16] MEDS ORDERED: METH-562 PO (09:42)
--- NOTE | 2020-11-16 09:44 | DISCH ---
DISCHARGE INSTRUCTIONS Condition on Discharge Condition on Discharge: Stable Activity After Discharge Activity Instructions for Disc: Activity as tolerated, Avoid exertion Other activity instructions: no driving for a week Bathing Instructions: Shower-keep dressing dry, No Tub Bath until see Lifting Instructions after Dis: No heavy lifting, No pulling or pushing, Do not lift >10 pounds Diet after Discharge Diet after Discharge: Regular Additional Diet Restrictions: resume home diet Diet Texture: Regular Wound Incision Care Wound/Incision Care: Ice to area for comfort Other wound/incision instructi: may remove dressing in 48 hours if dry, no soaking Contacting the DRWendi after DC Call your doctor for: Concerns you may have Follow-Up Follow up with: Dr. Liz's nurse in 2 weeks [phone] Treatment/Equipment after DC Adaptive Equipment Issued: None BLAINE LIZ MD November 16, 2020 09:44
[2020-11-16 10:59] VITALS: BP 111/65
[2020-11-16 15:00] VITALS: BP 110/71
--- NOTE | 2020-11-16 15:28 | NUR ---
Patient left with her daughter around 1520. Dressing changed to lower back. IV discontinued. Discharge education performed by this nurse and therapy prior to dismissal. No concerns noted at discharge.
--- NOTE | 2020-11-22 09:11 | PATHOLOGY ---
[facility] Accession Number: [id number] . 01 Material submitted: . vertebral column - LUMBAR DISC AND DECOMPRESSION. Modifiers: LUMBAR . 01 Clinical history: . LUMBAR HERNIATED DISC, STENOSIS, RADICYLOPATHY LUMBER MICRODISCECTOMY, MICRODECOMPRESSION L4-5 . 02 Diagnosis: Segments of fibrocartilaginous tissue and bone, lumbar disc and decompression: - Degenerative changes of fibrocartilaginous tissue. (SANDYM:carmen; 11/21/2020) [facility] 11/21/20201958 Local . 02 Comment: There is no evidence of an acute inflammatory process or malignancy. (SANDYM:carmen; 11/21/2020) . 02 Electronically signed: . Gaurav Sesay MD, Pathologist NPI- [id number] . 01 Gross description: . Received in formalin labeled "Yeimi Allen, lumbar disc and decompression" is a 2.8 x 2.8 x 1.5 cm aggregate of li-brown bone and li-white rubbery soft tissue fragments. [employer] tissue is submitted in cassette A1 following decalcification. ([facility] [place]; 11/18/2020) [facility] 11/18/2020 1524 Local . 02 Pathologist provided ICD-10: M51.36 . 02 CPT . 108883, 108714 Specimen Comment: A courtesy copy of this report has been sent to [phone] Specimen Comment: Report sent to Performed at: 01 [facility] [address], [place], [place] [id number] MD Allen Coleman MD Phone: [phone] Performed at: 02 [facility] [address] [place], [place] [id number] MD Gaurav Sesay MD Phone: [phone]
== END 2020-11-16 15:20 | disposition home or self-care (01) ==
LOC: SURG 09:53 → 4 SOUTHEST 16:42
PROVIDERS: ADMIT Neurological Surgery; ATTEND Neurological Surgery
DX: M48.061 Spinal stenosis, lumbar region without neurogenic claudication (principal); M54.5 Low back pain; I10 Essential (primary) hypertension; J44.9 Chronic obstructive pulmonary disease, unspecified; M19.90 Unspecified osteoarthritis, unspecified site; Z90.49 Acquired absence of other specified parts of digestive tract; Z79.899 Other long term (current) drug therapy; Z98.890 Other specified postprocedural states; Z87.891 Personal history of nicotine dependence; Z96.659 Presence of unspecified artificial knee joint
CPT/HCPCS: 63030; 94640; 94760; 96374; 96376; 97116; 97162; 97530; A4213; A4364; A4930; A6254; A6258; G0378; G0379; J0690; J1100; J1885; J2370; J2405; J2704; J2710; J3010; J3370; J3490; J7613; J7626; 76000; A4222